=== PATIENT | male | born 1970 | race Caucasian/White ===

== ENCOUNTER 2018-06-24 15:56 | Emergency (ER) | payer BC, SELFPAY ==
[2018-06-24 15:56] VITALS: BP 153/86; PULSE 78; RESP 16; TEMP 36.7; O2SAT 97; BMI 49.3
--- NOTE | 2018-06-24 16:11 | EKG12_ITS ---
Test Reason : SOB/JAW PAIN Blood Pressure : / mmHG Vent. Rate : 071 BPM Atrial Rate : 071 BPM P-R Int : 158 ms QRS Dur : 088 ms QT Int : 396 ms P-R-T Axes : -15 051 045 degrees QTc Int : 430 ms Normal sinus rhythm Normal ECG Confirmed by CONCETTA JOSÉ, YUE ([id number]), proposal editor MIRZA BURROWS ([id number]) on 06/27/2018 7:51:49 AM Referred By: NORM/PATRICK Confirmed By:YUE HYLTON MD
--- NOTE | 2018-06-24 16:17 | RAD_ITS ---
STUDY: X-RAY CHEST REASON FOR EXAM: Male, 48 years old. Chest pain TECHNIQUE: AP COMPARISON: 02/02/2017 FINDINGS: The lungs are clear and expanded. There is no demonstrated pleural abnormality. There is borderline cardiomegaly. Normal mediastinum and neyda. Mildly prominent central pulmonary vessels similar since the prior study. EKG leads project over the chest. Normal visualized aortic arch and descending thoracic aorta. No acute bony process. There is no demonstrated abnormality of the visualized soft tissue structures of the upper abdomen. RAD/Chest 1 View (Portable) IMPRESSION: No airspace consolidation or pleural effusion. Similar borderline cardiomegaly with mild vascular congestion. Electronically Signed: Cm Young MD at 17:05 EDT , Service support ,
--- NOTE | 2018-06-24 16:18 | ED.VISSUMM ---
- ER Visit Summary Date of Service: 06/24/18 Chief Complaint: [] Chest pain for the last few days History of Present Illness: The patient is a 48 M [] G of cardiac stent x1, indicates that having chest pain and jaw pain intermittently for the last few days nothing triggers the chest and jaw pain, indicates in the past just before he had a stent placed he was getting jaw pain as a manifestation of heart disease, he also believes he may have some molars that are causing some dental pain and pressure. No fever no cough no abdominal pain no numbness weakness or paresthesias eating and drinking well He had a cardiac stress test a few months ago reports was unremarkable, indicates actually feels better when he is up walking around, he has no history of DVT or PE Physical Examination: [] General, no distress resting comfortably HEENT is generally unremarkable The neck is supple no adenopathy Cardiovascular, regular rate and rhythm Lungs, clear bilateral Abdomen, soft nontender Extremities, no clubbing cyanosis or edema Neurologic, awake alert answering questions appropriately moving all 4 extremities Test Results: [] Emergency Department Course and Treatment: [] Patient's EKG shows a sinus rhythm nothing acute he has had symptoms on and off for days the symptoms can last for 20 or 30 minutes given all the above screening labs troponin chest x-ray Patient screening labs are all generally unremarkable see those reports, the chest x-ray is unremarkable, went back to reassess him is resting comfortably remains asymptomatic and pain-free we discussed inpatient versus outpatient management he declined admission is that he want to go home he understood the long differential, he also indicated now that he feels as if he lays on his left side the symptoms do not bother him so the may be positional medication understands need to basically follow with his learning and development assistant and return for change in symptoms and consider taking proton pump inhibitors and altering his diet Treatment Plan: [] Disposition: [] Home stable declined admission Impression: [] Chest pain etiology unclear history of cardiac stents This note was generated with [employer] dictation software. It may contain incorrect words, spelling, and punctuation that were not noted in review of the chart prior to signing ED Disposition - Plan for ED Patient: Referrals: Manfred Mancia III, MD [Primary Care Provider] -
[2018-06-24 16:31] VITALS: BP 149/72; PULSE 70; RESP 16; O2SAT 96
[2018-06-24 16:32] VITALS: O2SAT 98
[2018-06-24] MEDS: Ipratropium/Albuterol Sulfate 3 ML AMPUL.NEB INHALATION (16:55)
[2018-06-24 16:56] VITALS: PULSE 68; RESP 16; O2SAT 96
[2018-06-24 17:03] LABS: Absolute Lymphocyte Count 1.98 X10^3/ul (0.83-4.51); Absolute Neutrophil Count 4.5 X10^3/uL (2.0-7.7); Basophil# 0.06 X10^3/uL; Basophil% 0.8 % (0-1); Eosinophil# 0.61 X10^3/uL; Eosinophils% 8.1 % (0-5); Hematocrit 44.7 % (40-54); Hemoglobin 15.3 g/dl (13.0-16.5); Lymphocyte # 1.98 X10^3/ul (4.0); Lymphocyte % 26.2 % (19-41); Mean Corp Hgb Conc 34.2 g/gl (32-36); Mean Corpuscular Hgb 30.6 pg (27.0-32.0); Mean Corpuscular Volume 89.4 fL (80-94); Mean Platelet Vol. 11.3 fl (6.2-12.0); Monocyte% 5.3 % (0-10); Neutrophil # 4.47 X10^3/uL (2.7-7.7); Neutrophil % 59.2 % (47-70); Platelet Count 198 K/mm3 (150-450); RBC Distribution Width CV 14.1 % (11.6-14.6); RBC Distribution Width SD 45.4 fl (35.1-43.9); White Blood Count 7.6 K/mm3 (4.4-11.0)
[2018-06-24 17:12] LABS: D-Dimer Quantitative (DVT/PE) 0.28 FEU/ug/m (0.27-0.49); POSITIVE COUNT NO; POSITIVE DIFFERENTIAL NO; POSITIVE MORPHOLOGY NO
[2018-06-24 17:19] LABS: Anion Gap 6 (5-15); BUN 16 mg/dL (7-18); BUN/Creat Ratio 15.7 RATIO (10-20); Calcium,Total 8.7 mg/dL (8.5-10.1); Chloride 112 mmol/L (98-107); Creatinine, Serum 1.02 mg/dL (0.70-1.30); EST Glomerular Filtration Rate 84 mL/min (>60); Est Glom Filt Rate - Afr Amer 101 mL/min (>60); Estimated Creatinine Clearance 87.55 ml/min; Glucose 99 mg/dL (74-106); Potassium 4.1 mmol/L (3.5-5.1); Sodium Level 142 mmol/L (136-145)
[2018-06-24 17:39] LABS: BNP,B-Type NATRIURETIC PEPTIDE 49.9 pg/mL (0-100)
[2018-06-24 18:55] VITALS: BP 151/80; PULSE 79; RESP 18
--- NOTE | 2018-06-24 19:11 | ED.DEP ---
ED Disposition - Plan for ED Patient: Instructions: ED Chest Pain Atypical Unkn Cause Referrals: Manfred Mancia III, MD [Primary Care Provider] -
[2018-06-24 19:26] VITALS: BP 151/80; PULSE 69; RESP 22; O2SAT 94
== END 2018-06-24 19:27 | disposition home or self-care (01) ==
LOC: ED 16:59
PROVIDERS: Emergency Provider Emergency Medicine; Family Provider Family Medicine; PCP Family Medicine
DX: R07.9 Chest pain, unspecified (principal); R68.84 Jaw pain; I25.10 Atherosclerotic heart disease of native coronary artery without angina pectoris; Z79.02 Long term (current) use of antithrombotics/antiplatelets; Z79.82 Long term (current) use of aspirin; Z79.899 Other long term (current) drug therapy; Z95.5 Presence of coronary angioplasty implant and graft
CPT/HCPCS: 71045; 80048; 83880; 84484; 85025; 85379; 93005; 94640; 99285; A4216

== ENCOUNTER 2021-11-09 15:43 | Observation (INO) | payer OTHER, SELFPAY ==
[2021-11-09] VITALS (11 sets, daily range): BP systolic 133–176; BP diastolic 75–96; PULSE 69–98; RESP 16–18; TEMP 36.3–37; O2SAT 94–99; BMI 44.1; BMI 44.0
--- NOTE | 2021-11-09 16:02 | EKG12_ITS ---
Test Reason : dizziness Blood Pressure : / mmHG Vent. Rate : 087 BPM Atrial Rate : 087 BPM P-R Int : 142 ms QRS Dur : 086 ms QT Int : 362 ms P-R-T Axes : -16 030 031 degrees QTc Int : 435 ms Normal sinus rhythm Normal ECG Confirmed by MEKA JOSÉ, TERE ([id number]), editor newspaper MIRZA BURROWS ([id number]) on 11/11/2021 11:19:34 AM Referred By: Rakesh Confirmed By:TERE ACKERMAN MD
--- NOTE | 2021-11-09 16:02 | EDS_ITS ---
HPI History of Present Illness Chief Complaint: General Illness Informant: patient Onset/Context/Timing Onset: Days Context: Gradual Onset Timing: Intermittent Current Severity: Mild Maximum Severity: Mild Narrative Narrative: 51-year-old male history of reflux. Also history of CAD, MA with 1 stent he believes he was placed at [facility] [place] 5 or 6 years ago. He is on Plavix. States he just has not felt well for the last week he said he has been having a lot of heartburn. States been using a lot of Tums. He said that about the pain at that top of his chest bottom of his throat. At times he gets diaphoretic for no reason. Today felt dizzy like he might pass out that occurred around noon. He is taken to COVID test 1 last week 1 yesterday both of which were negative. No calf pain or swelling. No hemoptysis. Denies any vomiting, diarrhea, fever or dysuria. No melena. Prior similar symptoms: Yes Recent Illness/Hospitalization: No PFSH PFSH Medical History (Updated 11/09/21 @ 18:36 by Seema Tse) Anxiety Coronary artery disease Former smoker GERD (gastroesophageal reflux disease) Hypertension Home Medications clonazepam 0.5 mg tablet 0.5 mg PO QHS PRN PRN Anxiety 08/01/16 [History Last Taken Unknown] clopidogrel 75 mg tablet 75 mg PO DAILY heart 08/01/16 [History Last Taken 11/09/21] metoprolol tartrate 25 mg tablet 25 mg PO DAILY bp 08/01/16 [History Last Taken 11/09/21] atorvastatin 10 mg tablet 10 mg PO QHS cholesterol lowering 06/24/18 [History Last Taken 11/08/21] aspirin 81 mg capsule 81 mg PO DAILY heart 11/09/21 [History Last Taken 11/09/21] Allergy/AdvReac Type Severity Reaction Status Date / Time fluoxetine HCl [From Prozac] Allergy Hives Verified 11/09/21 15:44 Social History Smoking Status: Former smoker ROS ROS ED ROS Narrative Diaphoresis. Chest pain. Review of Systems ROS Unobtainable: Denies due to encephalopathy Constitutional Constitutional ED: Denies chills or fever(s) Eyes Eyes: Denies blurry vision ENT ENT ED: Denies ear pain Cardiovascular Cardiovascular: Reports chest pain; Denies palpitations or racing heartbeat Respiratory/Chest Respiratory/Chest: Denies cough or dyspnea Gastrointestinal Gastrointestinal: Denies abdominal pain, constipation, diarrhea, melena, nausea or vomiting Genitourinary Genitourinary ED: Denies dysuria or hematuria Musculoskeletal Musculoskeletal: Denies arthralgias Integumentary Denies abscess or Abrasions Neurologic Neurologic: Denies headache(s) Psychiatric Psychiatric: Denies anxiety Endocrine Endocrinology: Denies cold intolerance Hematologic/Lymphatic Hematologic/Lymphatic: Reports none Allergic/Immunologic Allergic/Immunologic ED: Denies mouth swelling or tongue swelling EXAM Physical Exam Narrative Exam Narrative: 51-year-old male no acute distress. Vital signs are stable afebrile. Pulse ox 99% on room air no signs hypoxia. H EENT exam unremarkable. Moist Riis membranes. Neck nontender no lymphadenopathy. Lungs clear to auscultation bilaterally. Heart regular rate and rhythm rate in 90s no murmur. Chest were nontender. Abdomen soft nontender. Moving all 4 extremities. Calves are nontender without edema or cords. Neurologically is awake and alert with no focal motor deficits. Const Vital Signs: 11/09/21 15:44 11/09/21 16:01 11/09/21 16:11 Temperature 97.4 F L 97.4 F L Temperature Source Temporal Temporal Pulse Rate 98 98 Respiratory Rate 16 16 Respiratory Effort Respiratory Pattern Blood Pressure 176/83 H 176/83 H Blood Pressure Mean 114 114 Pulse Ox 99 99 98 Oxygen Delivery Method Room Air Room Air Room Air 11/09/21 16:13 11/09/21 17:30 11/09/21 16:55 Temperature 97.9 F Temperature Source Temporal Pulse Rate 80 80 Respiratory Rate 18 Respiratory Effort Normal Respiratory Pattern Normal Blood Pressure 153/75 H 133/79 H Blood Pressure Mean 101 97 Pulse Ox 95 Oxygen Delivery Method Room Air 11/09/21 17:55 Temperature 97.5 F L Temperature Source Temporal Pulse Rate 78 Respiratory Rate 18 Respiratory Effort Respiratory Pattern Blood Pressure 149/78 H Blood Pressure Mean 101 Pulse Ox 94 Oxygen Delivery Method Room Air Positive well nourished, well developed and obese; Negative for cachectic, contractures or unkempt General Appearance ED: well developed and NAD; Negative for unkempt, cachectic, contractures, cyanotic or diaphoretic Nutritional Appearance: obese; Negative for cachectic HEENT Reports moist mucous membranes Negative for trauma Eyes PERRL and EOMs intact bilaterally General Eye ED: Negative for pale conjunctiva or scleral icterus Neck no lymphadenopathy, supple and no JVD General: Negative for tenderness Lymph Lymphatic: Negative for other Chest Wall inspection of chest normal and palpation of chest normal Chest: Negative for other Resp normal respiratory effort and clear to auscultation bilaterally Effort and Inspection: Negative for retractions Auscultation: Negative for rales or rhonchi Cardio regular rate, regular rhythm, S1 normal heart sound, S2 normal heart sound and no murmurs Palpation: Negative for palpable S3 Rate: Negative for bradycardia Rhythm: Negative for abnormal rhythm GI normal to inspection, nondistended, normoactive bowel sounds, non-tender, non-distended and no masses Inspection: Negative for abdominal distention Auscultation: normoactive bowel sounds Palpation: soft; Negative for tender, guarding or mass Back/Spine no CVA tenderness General Back: Negative for CVA tenderness Cervical Spine: Negative for cervical spine tenderness Thoracic Spine / Upper Back: Negative for thoracic spinal tenderness Lumbar Spine / Lower Back: Negative for lumbar spinal tenderness Extremity normal to inspection General Extremety ED: Negative for edema or tenderness General Extremity: Negative for edema Neuro oriented x3 and CN's II-XII intact bilaterally Sensorium / Orientation: alert; Negative for orientation impaired, lethargic or stuporous Motor Exam: strength 5/5 throughout Psych Appearance: Negative for unkempt Skin no rashes or lesions noted Lesions: No lesion noted Rashes: No rashes noted Trauma: Negative for abrasion MDM MDM MDM Narrative Medical decision making narrative: 51-year-old atypical chest pain but is somewhat concerning. Also the history of cardiac disease of prior stents. Exam benign. Chest wall nontender. Cardiac work-up. Repeat exam at 6:08 PM. Patient doing well. He denies discussed his discomfort and concern that this could be underlying cardiac disease versus reflux versus other etiologies. He has no primary care physician at this time nor tooth clerk so we would not be able to get an outpatient stress test in a ti yahaira manner. I will speak to the hospitalist for admission for further cardiac evaluation and possible stress testing tomorrow. Lab Data Attestation: I reviewed the patient's lab results. Lab results narrative: CBC White count of 10. H&H 16 and 47. Platelets 231. Electrolytes show a gap of 8 BUN and creatinine are 22 and 1. Glucose 104. Troponin is normal at 5. Chest x-ray chronic changes no acute process. Labs: Laboratory Results - last 24 hr 11/09/21 11/09/21 11/09/21 16:15 16:15 18:21 WBC 10.7 RBC 5.35 Hgb 16.8 H Hct 47.8 MCV 89.3 MCH 31.4 MCHC 35.1 RDW Std Deviation 42.7 RDW Coeff of Chanelle 13.1 Plt Count 231 MPV 11.0 Immature Gran % (Auto) 0.700 Neut % (Auto) 65.9 Lymph % (Auto) 26.7 [place] % (Auto) 4.9 Eos % (Auto) 1.2 Baso % (Auto) 0.6 Absolute Neuts (auto) 7.1 Absolute Lymphs (auto) 2.86 Nucleated RBC % 0 Sodium 141 Potassium 3.6 Chloride 110 H Carbon Dioxide 23.0 Anion Gap 8 BUN 22 H Creatinine 1.03 Estim Creat Clear Calc 83.93 Est GFR (MDRD) Af Amer 99 Est GFR (MDRD) Non-Af 81 BUN/Creatinine Ratio 21.4 H Glucose 104 Calcium 10.1 Troponin I High Sens 5 5 Radiography Chest X-Ray - ED: 1 View, Read by ED Physician, Read by Radiologist, Heart, Lungs, Mediastinum, Bony Structures, No Acute Disease and Chronic Changes Diagnostic Testing: Clinical Impression(s) from Imaging Studies Chest X-Ray 11/09/21 16:18 IMPRESSION: Poor inspiration with some bibasilar atelectasis. Electronically Signed: Wan Carter MD at 16:37 EDT , Chest x-ray, portable, single view interpreted by myself and radiologist shows no acute abnormality. Normal cardiac silhouette mediastinum. Rhythm Strip Rhythm Strip: Sinus Rhythm Rate: 87 Ectopy: None EKG Initial EKG: Attestation: I personally reviewed and interpreted this EKG as follows: Interpretation: Sinus Rhythm and No Acute Injury Pattern Comments: Normal sinus rhythm rate 87 no acute signs of MA or ischemia. No PVCs. Discharge Plan Dx/Rx/DC Orders Clinical Impression: Chest pain, History of MA (myocardial infarction), History of heart artery stent Disposition Disposition: Acute Care Hospital [facility]
--- NOTE | 2021-11-09 16:18 | RAD_ITS ---
STUDY: X-RAY CHEST REASON FOR EXAM: Male, 51 years old. chest pain TECHNIQUE: Single AP portable view of the chest. COMPARISON: 06/24/2018 FINDINGS: Poor inspiration with some bibasilar atelectasis. There is no demonstrated pleural abnormality. Normal size heart. Normal mediastinum and neyda. Normal visualized pulmonary arteries. Normal visualized aortic arch and descending thoracic aorta. Normal visualized thoracic spine. Normal visualized ribs, clavicles, and shoulders. There is no demonstrated abnormality of the visualized soft tissue structures of the upper abdomen. RAD/Chest 1 View (Portable) IMPRESSION: Poor inspiration with some bibasilar atelectasis. Electronically Signed: Wan Carter MD at 16:37 EDT ,
[2021-11-09 16:19] LABS: Absolute Lymphocyte Count 2.86 X10^3/uL (0.83-4.51); Absolute Neutrophil Count 7.1 X10^3/uL (2.0-7.7); Basophil# 0.06 X10^3/uL; Basophil% 0.6 % (0-1); Eosinophil# 0.13 X10^3/uL; Eosinophils% 1.2 % (0-5); Hematocrit 47.8 % (40-54); Hemoglobin 16.8 g/dL (13.0-16.5); Lymphocyte # 2.86 X10^3/ul (0.83-4.51); Lymphocyte % 26.7 % (19-41); Mean Corp Hgb Conc 35.1 g/dL (32-36); Mean Corpuscular Hgb 31.4 pg (27.0-32.0); Mean Corpuscular Volume 89.3 fL (80-94); Monocyte# 0.53 X10^3/uL; Monocyte% 4.9 % (0-10); NRBC Flagged by Analyzer 0 % (0-5); Neutrophil # 7.06 X10^3/uL (2.7-7.7); Neutrophil % 65.9 % (47-70); Platelet Count 231 K/mm3 (150-450); RBC Distribution Width CV 13.1 % (11.6-14.6); RBC Distribution Width SD 42.7 fl (35.1-43.9); Red Blood Count 5.35 M/mm3 (4.6-6.2); White Blood Count 10.7 K/mm3 (4.4-11.0)
--- NOTE | 2021-11-09 16:39 | CM.ED ---
SW Note Referral Source: Case Find Referral Reason: No Primary Care Physician (PCP) SW reviewed chart and noted that patient has no PCP. SW provided patient with list of [facility] and [facility] Physician List for reference. No other issues or concerns voiced at this time. SW remains available for any additional needs. Plan: Provided patient with PCP information Jayne ROBERSON
[2021-11-09 16:41] LABS: Anion Gap 8 (5-15); BUN 22 mg/dL (7-18); BUN/Creat Ratio 21.4 RATIO (10-20); Calcium,Total 10.1 mg/dL (8.5-10.1); Chloride 110 mmol/L (98-107); Creatinine, Serum 1.03 mg/dL (0.70-1.30); EST Glomerular Filtration Rate 81 mL/min (>60); Est Glom Filt Rate - Afr Amer 99 mL/min (>60); Estimated Creatinine Clearance 83.93 ml/min; Glucose 104 mg/dL (74-106); Potassium 3.6 mmol/L (3.5-5.1); Sodium Level 141 mmol/L (136-145); Troponin-I HS (w/2H Reflex) 5 pg/mL (3.0-78.0)
[2021-11-09 18:16] LABS: Reflex Troponin-HS? (from REC) Y
--- NOTE | 2021-11-09 18:22 | HP.PCM.HOS_ITS ---
[facility] - General General Date of Admission: 11/09/21 Date of Service: 11/09/21 Chief Complaint: general weakness, chest pain HPI Narrative MARLA RIDLEY, is a 51 M who presents via the ED on 11/09/2021 with a complaint of generalised feeling of unwellness which had been going on for about a week. He said he had been having reflux and heartburn symptoms. He had been using a lot of Tums at home,a dn said the pain came was at the bottom of his throat and and top of his chest. He had associated increased sweating. He has a history of CAD with stent placement at [facility] about 5 to 6 years ago and has been taking Plavix. He has however not been following up with any back joiner. He denied any fever, chills, nausea, vomiting, shortness of breath or diarrhea. Review of systems was otherwise negative. Vitals in the ED were BP of 153/75, and temperature of 97.4F, with PA of 80, RR of 165 and pulse ox of 98% on room air. CBC showed hb of 16.8, wbc of 10.7 and platelets of 231. Chemistry showed sodium of 141 and bicarb of 23 as well as Cr of 1.03. CXR showed poor inspiration with some bibasilar atelectasis. Initial troponin was negative. However, in light of his significant reflux which could be atypical chest pain, as well as cardiac history, he is being admitted to rule out ACS and to have stress test. [facility] Medical History (Updated 11/09/21 @ 18:36 by Seema Tse) Anxiety Coronary artery disease Former smoker GERD (gastroesophageal reflux disease) Hypertension Home Medications clonazepam 0.5 mg tablet 0.5 mg PO QHS PRN PRN Anxiety 08/01/16 [History Last Taken Unknown] clopidogrel 75 mg tablet 75 mg PO DAILY heart 08/01/16 [History Last Taken 11/09/21] metoprolol tartrate 25 mg tablet 25 mg PO DAILY bp 08/01/16 [History Last Taken 11/09/21] atorvastatin 10 mg tablet 10 mg PO QHS cholesterol lowering 06/24/18 [History Last Taken 11/08/21] aspirin 81 mg capsule 81 mg PO DAILY heart 11/09/21 [History Last Taken 11/09/21] Allergy/AdvReac Type Severity Reaction Status Date / Time fluoxetine HCl [From Prozac] Allergy Hives Verified 11/09/21 15:44 Social History Smoking Status: Former smoker ROS Constitutional Constitutional: Reports malaise; Denies anorexia, chills, fatigue, fever(s) or weakness Eyes Eyes: Denies change in vision ENT HEENT: Denies dysphagia, headache(s) or sore throat Cardiovascular Cardiovascular: Denies chest pain, dyspnea on exertion, edema, lightheadedness, orthopnea, palpitations, paroxysmal nocturnal dyspnea, rapid heart rate or syncope Respiratory/Chest Respiratory/Chest: Denies cough, dyspnea, shortness of breath at rest or shortness of breath with exertion Gastrointestinal Gastrointestinal: Denies abdominal pain, diarrhea, nausea or vomiting Genitourinary Genitourinary: Denies burning urination, dysuria, hematuria, urinary frequency or urinary hesitancy Musculoskeletal Musculoskeletal: Denies back pain Neurologic Neurologic: Denies confusion, dizziness, focal weakness, headache(s), numbness, seizures or syncope Psychiatric Psychiatric: Denies anxiety or depression Endocrine Endocrinology: Reports excessive sweating; Denies change in body appearance Vital Signs Vital Signs Vital Signs: 11/09/21 15:44 11/09/21 16:01 11/09/21 16:11 Temperature 97.4 F L 97.4 F L Temperature Source Temporal Temporal Pulse Rate 98 98 Respiratory Rate 16 16 Respiratory Effort Respiratory Pattern Blood Pressure 176/83 H 176/83 H Blood Pressure Mean 114 114 Pulse Ox 99 99 98 Oxygen Delivery Method Room Air Room Air Room Air 11/09/21 16:13 11/09/21 17:30 Temperature Temperature Source Pulse Rate 80 Respiratory Rate Respiratory Effort Normal Respiratory Pattern Normal Blood Pressure 153/75 H Blood Pressure Mean 101 Pulse Ox Oxygen Delivery Method Weight Weight: 290 lb Body Mass Index (BMI) 44.1 Physical Exam Const alert, oriented x3 and no apparent distress General Appearance: cooperative HEENT normocephalic, head/scalp atraumatic, hearing grossly normal bilaterally and moist oral mucous membranes Mouth: oral and palatal mucosa normal Eyes PERRL, EOMs intact bilaterally and conjunctivae normal Neck no lymphadenopathy, supple and no JVD Resp normal respiratory effort, no retractions, no use of accessory muscles and clear to auscultation bilaterally Cardio regular rate, regular rhythm, S1 normal heart sound, S2 normal heart sound and no murmurs GI normal to inspection, nondistended, normoactive bowel sounds, soft to palpation, non-tender and non-distended Extremity normal to inspection, full ROM and no clubbing, cyanosis or edema Neuro oriented x3, CN's II-XII intact bilaterally, moves all extremities and no focal motor deficits Sensorium / Orientation: awake and alert Speech: speech normal Motor Exam: strength 5/5 throughout Psych affect normal Results Lab / Micro Data Result Diagrams: 11/09/21 16:15 11/09/21 16:15 Labs: Laboratory Results - last 24 hr 11/09/21 16:15: WBC 10.7, RBC 5.35, Hgb 16.8 H, Hct 47.8, MCV 89.3, MCH 31.4, MCHC 35.1, RDW Std Deviation 42.7, RDW Coeff of Chanelle 13.1, Plt Count 231, MPV 11.0, Immature Gran % (Auto) 0.700, Neut % (Auto) 65.9, Lymph % (Auto) 26.7, [place] % (Auto) 4.9, Eos % (Auto) 1.2, Baso % (Auto) 0.6, Absolute Neuts (auto) 7.1, Absolute Lymphs (auto) 2.86, Nucleated RBC % 0 11/09/21 16:15: Sodium 141, Potassium 3.6, Chloride 110 H, Carbon Dioxide 23.0, Anion Gap 8, BUN 22 H, Creatinine 1.03, Estim Creat Clear Calc 83.93, Est GFR (MDRD) Af Amer 99, Est GFR (MDRD) Non-Af 81, BUN/Creatinine Ratio 21.4 H, Glucose 104, Calcium 10.1, Troponin I High Sens 5 Rhythm Strip Rhythm Strip: Sinus Rhythm Rate: 87 Ectopy: None Radiology Impression Chest X-Ray 11/09/21 16:18 IMPRESSION: Poor inspiration with some bibasilar atelectasis. Electronically Signed: Wan Carter MD at 16:37 EDT , Assessment & Plan Assessment/Plan (1) Chest pain: PLAN: Plan #Atypical chest pain * presented with severe reflux and heartburn symptoms * does have a history of CAD s/p stents, but hasnt followed up with any back joiner * initial high sensitivity troponin is only 5 * admit to PCU * cycle troponins; PO aspirin 81mg daily. Sl nitroglycerin * I do think it is reasonable to do a stress test tomorrow in light of his histo ry of CAD s/p stents and severity of his reflux symptoms which could be an anginal equivalent. * Of note EKG showed no acute ST changes. * PO pantoprazole 40mg daily, will also give Tums * #CAD s/p stent: on plavix, aspirin and atorvastatin as well as metoprolol #Elevated blood pressure * Blood pressure is 153/75 at time of review. * On metoprolol. IV hydralazine as needed. * DVT prophylaxis: Lovenox Charges/Coding Visit Charges OBSV E&M: 89864 Initial observation care L2
[2021-11-09 18:44] LABS: Troponin-I HS 5 pg/mL (3.0-78.0)
--- NOTE | 2021-11-09 20:00 | EKG12_ITS ---
Test Reason : AM EKG Blood Pressure : / mmHG Vent. Rate : 061 BPM Atrial Rate : 061 BPM P-R Int : 176 ms QRS Dur : 092 ms QT Int : 406 ms P-R-T Axes : 022 043 053 degrees QTc Int : 408 ms Normal sinus rhythm Normal ECG Confirmed by MEKA JOSÉ, TERE ([id number]), web editor MIRZA BURROWS ([id number]) on 11/11/2021 11:34:30 AM Referred By: Confirmed By:TERE ACKERMAN MD
--- NOTE | 2021-11-09 20:21 | HP.PCM.HOS_ITS ---
HPI - General General Date of Admission: 11/09/21 Chief Complaint: general weakness, chest pain HPI Narrative MARLA RIDLEY, is a 51 M who presents [facility] Medical History Anxiety Coronary artery disease Former smoker GERD (gastroesophageal reflux disease) Hypertension Home Medications clonazepam 0.5 mg tablet 0.5 mg PO QHS PRN PRN Anxiety 08/01/16 [History Last Taken Unknown] clopidogrel 75 mg tablet 75 mg PO DAILY heart 08/01/16 [History Last Taken 11/09/21] metoprolol tartrate 25 mg tablet 25 mg PO DAILY bp 08/01/16 [History Last Taken 11/09/21] atorvastatin 10 mg tablet 10 mg PO QHS cholesterol lowering 06/24/18 [History Last Taken 11/08/21] aspirin 81 mg capsule 81 mg PO DAILY heart 11/09/21 [History Last Taken 11/09/21] Allergy/AdvReac Type Severity Reaction Status Date / Time fluoxetine HCl [From Prozac] Allergy Hives Verified 11/09/21 15:44 Social History Smoking Status: Former smoker Vital Signs Vital Signs Vital Signs: 11/09/21 15:44 11/09/21 16:01 11/09/21 16:11 Temperature 97.4 F L 97.4 F L Temperature Source Temporal Temporal Pulse Rate 98 98 Respiratory Rate 16 16 Respiratory Effort Respiratory Depth Respiratory Pattern Blood Pressure 176/83 H 176/83 H Blood Pressure Mean 114 114 Blood Pressure Source Blood Pressure Position Blood Pressure Location Pulse Ox 99 99 98 Oxygen Delivery Method Room Air Room Air Room Air 11/09/21 16:13 11/09/21 17:30 11/09/21 16:55 Temperature 97.9 F Temperature Source Temporal Pulse Rate 80 80 Respiratory Rate 18 Respiratory Effort Normal Respiratory Depth Respiratory Pattern Normal Blood Pressure 153/75 H 133/79 H Blood Pressure Mean 101 97 Blood Pressure Source Blood Pressure Position Blood Pressure Location Pulse Ox 95 Oxygen Delivery Method Room Air 11/09/21 17:55 11/09/21 18:55 11/09/21 19:24 Temperature 97.5 F L 97.9 F 97.8 F Temperature Source Temporal Temporal Temporal Pulse Rate 78 84 84 Respiratory Rate 18 18 18 Respiratory Effort Respiratory Depth Respiratory Pattern Blood Pressure 149/78 H 163/92 H 163/92 H Blood Pressure Mean 101 115 115 Blood Pressure Source Blood Pressure Position Blood Pressure Location Pulse Ox 94 95 95 Oxygen Delivery Method Room Air Room Air 11/09/21 19:53 11/09/21 20:00 11/09/21 19:50 Temperature 98.6 F Temperature Source Temporal Pulse Rate 70 69 Respiratory Rate 18 Respiratory Effort Normal Non-Labored Respiratory Depth Normal Respiratory Pattern Normal Blood Pressure 150/92 H Blood Pressure Mean 111 Blood Pressure Source Monitor Blood Pressure Position Semi-Fowlers Blood Pressure Location Left Arm Pulse Ox 97 Oxygen Delivery Method Room Air Room Air Weight Weight: 131.4 kg Body Mass Index (BMI) 44.0 Results Lab / Micro Data Result Diagrams: 11/09/21 16:15 11/09/21 16:15 Labs: Laboratory Results - last 24 hr 11/09/21 16:15: WBC 10.7, RBC 5.35, Hgb 16.8 H, Hct 47.8, MCV 89.3, MCH 31.4, MCHC 35.1, RDW Std Deviation 42.7, RDW Coeff of Chanelle 13.1, Plt Count 231, MPV 11.0, Immature Gran % (Auto) 0.700, Neut % (Auto) 65.9, Lymph % (Auto) 26.7, Bureau % (Auto) 4.9, Eos % (Auto) 1.2, Baso % (Auto) 0.6, Absolute Neuts (auto) 7.1, Absolute Lymphs (auto) 2.86, Nucleated RBC % 0 11/09/21 16:15: Sodium 141, Potassium 3.6, Chloride 110 H, Carbon Dioxide 23.0, Anion Gap 8, BUN 22 H, Creatinine 1.03, Estim Creat Clear Calc 83.93, Est GFR (MDRD) Af Amer 99, Est GFR (MDRD) Non-Af 81, BUN/Creatinine Ratio 21.4 H, Glucose 104, Calcium 10.1, Troponin I High Sens 5 11/09/21 18:21: Troponin I High Sens 5 Rhythm Strip Rhythm Strip: Sinus Rhythm Rate: 87 Ectopy: None Radiology Impression Chest X-Ray 11/09/21 16:18 IMPRESSION: Poor inspiration with some bibasilar atelectasis. Electronically Signed: Wan Carter MD at 16:37 EDT ,
[2021-11-09] MEDS: Calcium Carbonate 500 MG Tablet PO (20:58)
[2021-11-09] MEDS: Atorvastatin Calcium 10 MG Tablet PO (20:58)
[2021-11-10] VITALS (8 sets, daily range): BP systolic 117–151; BP diastolic 62–93; PULSE 59–87; RESP 16–18; TEMP 36.4–36.8; O2SAT 96–97
[2021-11-10] MEDS: 0.9% Saline Lock 10 ML Syringe IV (05:32)
[2021-11-10] MEDS: Clopidogrel Bisulfate 75 MG Tablet PO (05:32)
[2021-11-10] MEDS: Aspirin 81 MG TAB.CHEW PO (05:32)
--- NOTE | 2021-11-10 05:55 | EKG12_ITS ---
Test Reason : CP ADMIT Blood Pressure : / mmHG Vent. Rate : 066 BPM Atrial Rate : 066 BPM P-R Int : 144 ms QRS Dur : 092 ms QT Int : 398 ms P-R-T Axes : -19 034 056 degrees QTc Int : 417 ms Normal sinus rhythm Normal ECG Confirmed by MEKA JOSÉ, TERE ([id number]), film and video editor MIRZA BURROWS ([id number]) on 11/11/2021 11:34:59 AM Referred By: ALEX Confirmed By:TERE ACKERMAN MD
[2021-11-10 06:09] LABS: Absolute Lymphocyte Count 2.87 X10^3/uL (0.83-4.51); Absolute Neutrophil Count 5.7 X10^3/uL (2.0-7.7); Basophil# 0.06 X10^3/uL; Basophil% 0.6 % (0-1); Eosinophil# 0.22 X10^3/uL; Eosinophils% 2.3 % (0-5); Hematocrit 47.3 % (40-54); Hemoglobin 16.1 g/dL (13.0-16.5); Lymphocyte # 2.87 X10^3/ul (0.83-4.51); Lymphocyte % 29.9 % (19-41); Mean Corpuscular Hgb 31.2 pg (27.0-32.0); Mean Corpuscular Volume 91.7 fL (80-94); Monocyte% 7.3 % (0-10); NRBC Flagged by Analyzer 0 % (0-5); Neutrophil # 5.68 X10^3/uL (2.7-7.7); Neutrophil % 59.1 % (47-70); Platelet Count 219 K/mm3 (150-450); RBC Distribution Width SD 44.1 fl (35.1-43.9); Red Blood Count 5.16 M/mm3 (4.6-6.2); White Blood Count 9.6 K/mm3 (4.4-11.0)
[2021-11-10 06:42] LABS: Anion Gap 5 (5-15); BUN 19 mg/dL (7-18); BUN/Creat Ratio 19.5 RATIO (10-20); Calcium,Total 9.7 mg/dL (8.5-10.1); Chloride 108 mmol/L (98-107); Creatinine, Serum 0.97 mg/dL (0.70-1.30); EST Glomerular Filtration Rate 87 mL/min (>60); Est Glom Filt Rate - Afr Amer 105 mL/min (>60); Estimated Creatinine Clearance 89.12 ml/min; Glucose 96 mg/dL (74-106); Potassium 3.9 mmol/L (3.5-5.1); Sodium Level 138 mmol/L (136-145)
[2021-11-10 06:56] LABS: Troponin-I HS 7 pg/mL (3.0-78.0)
[2021-11-10] MEDS: Metoprolol Tartrate 25 MG Tablet PO (10:35)
[2021-11-10] MEDS: Pantoprazole Sodium 40 MG Tablet PO (10:35)
[2021-11-10] MEDS: Calcium Carbonate 500 MG Tablet PO (10:36)
--- NOTE | 2021-11-10 12:35 | DS.PCM_ITS ---
Providers Date of Admission: 11/09/21 Date of Discharge: 11/10/21 Primary Care Physician: No Primary Care Phys Reason For Visit: ATYPICAL CHEST PAIN Diagnosis Discharge Diagnosis (1) Chest pain: Status: Acute Code(s): R07.9 - Chest pain, unspecified Medications at Discharge Home Medications clonazepam 0.5 mg tablet 0.5 mg PO QHS PRN PRN Anxiety 08/01/16 clopidogrel 75 mg tablet 75 mg PO DAILY heart 08/01/16 metoprolol tartrate 25 mg tablet 25 mg PO DAILY bp 08/01/16 atorvastatin 10 mg tablet 10 mg PO QHS cholesterol lowering 06/24/18 aspirin 81 mg capsule 81 mg PO DAILY heart 11/09/21 pantoprazole 40 mg tablet,delayed release 40 mg PO DAILY #30 tabs 11/10/21 Hospital Course Operations None Procedures EKG and Nuclear stress test Summary of Care Provided Minutes Spent on Discharge: 27 Hospital Course: Mr. Wallace is a 51-year-old male with a history of coronary artery disease status post PCI with JEAN 5 or 6 years ago at [facility] who presented to the emergency department on 11/09/2021 complaining of chest pain. Patient indicates he is not felt well over approximately last week and that he has been having a lot of heartburn. He indicated he been using a lot of Tums and that the pain was at the top of his chest to the bottom of his throat. He indicated he gets diaphoretic for no reason at times and he felt dizzy on the day of presentation like he might pass out. Indicated that he took a COVID test a week ago and yesterday and they were both negative. He denied any associated nausea, vomiti ng, or shortness of breath. He has not been following with a cutter finisher as an outpatient and it appears that he does not have a primary care physician. Vitals in the ED were BP of 153/75, and temperature of 97.4F, with IN of 80, RR of 165 and pulse ox of 98% on room air. CBC showed hb of 16.8, wbc of 10.7 and platelets of 231. Chemistry showed sodium of 141 and bicarb of 23 as well as Cr of 1.03. CXR showed poor inspiration with some bibasilar atelectasis. His initial troponin was negative and his cardiac enzymes were cycled after he was admitted to the PCU. Cardiac enzymes were 5, 5, and 7. Nuclear stress test was obtained and found to be negative for any inducible ischemia. It sounds like some of his symptoms may be GERD related we started a PPI for him with Protonix 40 mg daily. This prescription was sent to his local pharmacy and he was given 1 refill. The patient was maintained on his baseline medications and encouraged to follow-up with the primary care physician as an outpatient for continued care. We also encouraged him to find a cutter finisher given his previous cardiac history. He was discharged home in stable condition on 11/10/2021. Discharge diagnoses: Atypical chest pain Suspected GERD CAD with history of PCI Hypertension Hyperlipidemia Morbid obesity-BMI 44 Anxiety Physical Exam Const Constitutional Narrative: Middle-aged, white male lying in bed, appears comfortable and nontoxic General Appearance: cooperative, comfortable, well kempt and well developed Orientation / Consciousness: awake Exam Limitations: no limitations Nutritional Appearance: obese HEENT normocephalic, head/scalp atraumatic, hearing grossly normal bilaterally and moist oral mucous membranes HEENT Narrative: Mallampati 3, no thrush Resp normal respiratory effort, no retractions, no use of accessory muscles and clear to auscultation bilaterally Auscultation: Negative for crackles, rales, rhonchi or wheezes Cardio regular rate, regular rhythm, S1 normal heart sound, S2 normal heart sound, no murmurs, no rub, no gallops, no clicks and no JVD GI normal to inspection, nondistended, normoactive bowel sounds, soft to palpation, non-tender and non-distended Extremity no clubbing, cyanosis or edema Extremity Narrative: 2+ pedal pulses Neuro oriented x3, CN's II-XII intact bilaterally, moves all extremities and no sensory deficits noted Sensorium / Orientation: awake and alert Speech: speech normal Psych affect normal Psych Narrative: Very pleasant and appropriately interactive Weight / BMI Weight Weight: 131.4 kg Body Mass Index (BMI) 44.0 ABG / Lab / Microbiology Data Result Diagrams: 11/10/21 05:30 11/10/21 05:30 Laboratory: Laboratory Results - last 24 hr 11/09/21 16:15: WBC 10.7, RBC 5.35, Hgb 16.8 H, Hct 47.8, MCV 89.3, MCH 31.4, MCHC 35.1, RDW Std Deviation 42.7, RDW Coeff of Chanelle 13.1, Plt Count 231, MPV 11.0, Immature Gran % (Auto) 0.700, Neut % (Auto) 65.9, Lymph % (Auto) 26.7, Wells % (Auto) 4.9, Eos % (Auto) 1.2, Baso % (Auto) 0.6, Absolute Neuts (auto) 7.1, Absolute Lymphs (auto) 2.86, Nucleated RBC % 0 11/09/21 16:15: Sodium 141, Potassium 3.6, Chloride 110 H, Carbon Dioxide 23.0, Anion Gap 8, BUN 22 H, Creatinine 1.03, Estim Creat Clear Calc 83.93, Est GFR (MDRD) Af Amer 99, Est GFR (MDRD) Non-Af 81, BUN/Creatinine Ratio 21.4 H, Glucose 104, Calcium 10.1, Troponin I High Sens 5 11/09/21 18:21: Troponin I High Sens 5 11/10/21 05:30: WBC 9.6, RBC 5.16, Hgb 16.1, Hct 47.3, MCV 91.7, MCH 31.2, MCHC 34.0, RDW Std Deviation 44.1 H, RDW Coeff of Chanelle 13.0, Plt Count 219, MPV 11.0, Immature Gran % (Auto) 0.800, Neut % (Auto) 59.1, Lymph % (Auto) 29.9, Wells % (Auto) 7.3, Eos % (Auto) 2.3, Baso % (Auto) 0.6, Absolute Neuts (auto) 5.7, Absolute Lymphs (auto) 2.87, Nucleated RBC % 0 11/10/21 05:30: Sodium 138, Potassium 3.9, Chloride 108 H, Carbon Dioxide 25.0, Anion Gap 5, BUN 19 H, Creatinine 0.97, Estim Creat Clear Calc 89.12, Est GFR (MDRD) Af Amer 105, Est GFR (MDRD) Non-Af 87, BUN/Creatinine Ratio 19.5, Glucose 96, Calcium 9.7 11/10/21 05:30: Troponin I High Sens 7 Radiography Diagnostic Testing: Radiology Impression Chest X-Ray 11/09/21 16:18 IMPRESSION: Poor inspiration with some bibasilar atelectasis. Electronically Signed: Wan Carter MD at 16:37 EDT , D/C Instructions Discharge Diet: Low fat / Low cholesterol Discharge Activity: Return to Normal Activity Return to work on: 11/11/21 Meaningful Use Info Meaningful Use Diagnoses (Choose all that apply): None applicable Discharge Plan Admission Admit Date/Time: 11/09/21 18:35 Primary Reason for Your Visit: Atypical chest pain Attending Provider: Barbara Henry Primary Care Provider: Care Physician,No Primary Consulting Providers: Rosario Munson Instructions Additional Instructions / Restrictions: 1. Please find a primary care physician follow-up with them within the next 1 to 2 weeks Discharge Orders/Prescriptions Prescriptions: New pantoprazole 40 mg Tablet,Delayed Release (Dr/Ec) 40 mg PO DAILY Qty: 30 1RF Continued clonazepam 0.5 MG tablet 0.5 mg PO QHS PRN PRN (Reason: Anxiety) clopidogrel 75 MG tablet 75 mg PO DAILY metoprolol tartrate 25 MG tablet 25 mg PO DAILY atorvastatin 10 MG tablet 10 mg PO QHS aspirin 81 mg Capsule 81 mg PO DAILY Referrals / Follow Up: Care Physician,No Primary [Primary Care Provider] - Disposition Disposition (needs filled in before D/C Order can be placed): Home, Self Care Charges/Coding Visit Charges Inpatient E&M: 57086 Disch Hosp
--- NOTE | 2021-11-10 12:39 | STRESSREP ---
Stress Test Report Date: 11-10-2021 Procedure: Exercise tolerance test/imaging study Indications: Chest pain; CAD; status post PCI; status post COVID-19 Consent: Per the patient Procedure: The patient exercised on a Lion protocol for 6 minutes completing Stage II achieving a peak heart rate of 139 bpm (81% predicted maximal heart rate) with a peak blood pressure 192/94 mmHg and a peak MET capacity of 7 METs. The baseline ECG demonstrated normal sinus rhythm. The peak exercise ECG demonstrated somatic/motion artifact but no obvious ECG changes. There were no cardiac dysrhythmias pretest, during exercise, or recovery. The functional capacity was considered average. There was no complaint of chest discomfort during exercise or recovery. The examination was discontinued secondary to dyspnea and leg discomfort. Impression: 1. Technically adequate (percent predicted maximal heart rate greater than 85%) exercise tolerance test 2. Peak exercise ECG with somatic/motion artifact with no obvious ECG changes 3. There were no cardiac dysrhythmias pretest, during exercise, or recovery 4. Nuclear images pending Myocardial perfusion imaging study: Technique: The patient was injected with 14.6 mCi of technetium 99m Cardiolite and subsequently rest SPECT Cardiolite nuclear imaging was obtained in the horizontal long, vertical long, and short axis views. The patient exercised on a Lion protocol for 6 minutes completing Stage II achieving a peak heart rate of 139 bpm (81% predicted maximal heart rate) with a peak blood pressure 192/94 mmHg and a peak MET capacity of 7 METs. The patient was injected with 44.7 mCi of technetium 99m Cardiolite and subsequently stress SPECT Cardiolite nuclear imaging was obtained in the horizontal long, vertical long, and short axis views. A gated Cardiolite study at peak stress was obtained. Interpretation: Rest and stress SPECT Cardiolite nuclear imaging status post realignment, normalization, and attenuation correction, demonstrates at rest the appearance of subtle diminished tracer uptake in the distal inferior/inferoapical segments which appears to improve/normalize following stress. There are no myocardial perfusion changes appreciated on the stress polar map images. There is end systolic thickening and brightening. The gated Cardiolite study demonstrates myocardial thickening and inward wall motion. The reported LVEF is 77%. Impression: 1. Rest and stress SPECT Cardiolite nuclear imaging demonstrate the appearance of myocardial perfusion changes at rest which appear to improve/normalize following stress appearing compatible with shifting soft tissue attenuation/artifact with no myocardial perfusion changes considered diagnostic for associated stress-induced myocardial ischemia. 2. The gated Cardiolite study reports an LVEF of 77%. This note was generated with [employer] software. It may contain incorrect words, spelling, and punctuation that were not noted in checking the note before signing.
--- NOTE | 2021-11-10 13:33 | PHA.DC.MC ---
Pharmacy Service has performed discharge medication reconciliation and counseling for this patient. 1. PANTOPRAZOLE 40MG PO DAILY The patient's discharge medication list was reviewed for discrepancies and discrepancies were resolved. Home Medications clonazepam 0.5 mg tablet 0.5 mg PO QHS PRN PRN Anxiety 08/01/16 clopidogrel 75 mg tablet 75 mg PO DAILY heart 08/01/16 metoprolol tartrate 25 mg tablet 25 mg PO DAILY bp 08/01/16 atorvastatin 10 mg tablet 10 mg PO QHS cholesterol lowering 06/24/18 aspirin 81 mg capsule 81 mg PO DAILY heart 11/09/21 pantoprazole 40 mg tablet,delayed release 40 mg PO DAILY #30 tabs 11/10/21 The patient was counseled on the following discharge medications and changes in medications for homegoing were reviewed. The Reason for Use, instructions for use, and potential side effects were reviewed for all new medications. The patient's questions regarding all of their medications were answered. The patient was able to verbally demonstrate an understanding of their discharge medications. Patient counseled by pharmacy grad internAdonay.
== END 2021-11-10 12:37 | disposition home or self-care (01) ==
LOC: ED 18:15 → PCU 18:48
PROVIDERS: Admitting Provider Student in an Organized Health Care Education/Training Program; Emergency Provider Emergency Medicine; Visit Provider Internal Medicine
DX: R07.89 Other chest pain (principal); E66.01 Morbid (severe) obesity due to excess calories; Z68.41 Body mass index [BMI] 40.0-44.9, adult; F41.9 Anxiety disorder, unspecified; I10 Essential (primary) hypertension; E78.5 Hyperlipidemia, unspecified; I25.10 Atherosclerotic heart disease of native coronary artery without angina pectoris; Z87.891 Personal history of nicotine dependence; R53.1 Weakness; K21.9 Gastro-esophageal reflux disease without esophagitis; I25.2 Old myocardial infarction; Z95.5 Presence of coronary angioplasty implant and graft; Z79.899 Other long term (current) drug therapy; Z79.82 Long term (current) use of aspirin; Z79.02 Long term (current) use of antithrombotics/antiplatelets
CPT/HCPCS: 71045; 78452; 80048; 84484; 85025; 93005; 93017; 99218; 99285; A9500; A4216; G0378